=== PATIENT | female | born 1970 | race Hispanic/Latino ===

== ENCOUNTER 2025-06-23 19:56 | Emergency (ER) | payer SELFPAY ==
[2025-06-23 21:19] LABS: Specific Gravity, Urine 1.010 (1.005-1.030)
[2025-06-23] MEDS ORDERED: Ketorolac Tromethamine 30 MG (1 mL) VIAL ONE (21:36)
[2025-06-23 22:03] LABS: Leukocyte Unable to Interpret (Negative)
[2025-06-23 22:04] LABS: Glucose, Urine (Dipstick) Unable to Interpret mg/dL (Negative); Protein, Urine (Dipstick) Unable to Interpret mg/dl (Neg-Trace)
[2025-06-23 22:05] LABS: Bacteria/HPF None Seen HPF (None Seen); CAUTI Indications for Culture Pelvic or flank pain; RBC/HPF None Seen HPF (0-3); Urine Culture Reflex No No; WBC/HPF None Seen HPF (0-3)
[2025-06-23] MEDS ORDERED: metroNIDAZOLE 500 MG TAB ONE (23:07)
[2025-06-23] MEDS ORDERED: Ciprofloxacin 500 MG TAB ONE (23:08)
== END 2025-06-24 00:40 | disposition home or self-care (01) ==
LOC: CSHERS 19:56
DX: K57.32 Diverticulitis of large intestine without perforation or abscess without bleeding (principal); I10 Essential (primary) hypertension
CPT/HCPCS: 74176; 81001; 96372; J1885; Q0162